=== PATIENT | male | born 1940 ===

== ENCOUNTER 2019-02-18 12:35 | Inpatient (IN) | payer OTHER, MEDICARE ==
[2019-02-18 12:47] VITALS: BMI 23.9
--- NOTE | 2019-02-18 13:53 | PDOC ---
History of Present Illness - General History Source: Patient, Other (Wound Care Clinic Referral Note) Exam Limitations: No Limitations - History of Present Illness Initial Comments: HPI: 78 y/o male presenting to [facility] ER from outpatient wound clinic complaining of four weeks of redness, warmth, and itching to right ankle. Over the past several days, the pt has noticed red boles that are moving up the internal portion of his leg. Endorses occasional chills without fevers as well as small amount of clear drainage. Denies arthralgia, numbness, or weakness. Symptoms started after gardening hydrangeas. Removed a tick from the area. Completed a two day course of Keflex and a ten day course of Bactrim one week ago without improvement in symptoms. Medical Hx: - Hypothyroidism - Osteoporosis - Hemochromatosis Surgical Hx: - R knee replacement 9 years ago Review of Systems: In addition to that documented in the HPI above, the additional ROS was obtained : Constitutional: Endorses chills. Denies fevers Head: Denies vision changes ENMT: Denies sore throat CV: Denies chest pain Resp: Denies SOB GI: Denies abd pain, vomiting, or diarrhea : Denies painful urination or hematuria MSK: Denies recent trauma Skin: Per HPI Neuro: Denies new numbness or tingling or weakness Endocrine: Denies polyuria Heme: Denies bleeding or bruising Physical Examination: Constitutional: Well-developed, well-nourished elderly adult male in no acute distress or obvious discomfort. Found semi-fowlers on hospital bed. Alert and oriented x4. Answered all questions appropriately and completely. Speech was non -labored, non-pressured. Head: Normocephalic. No obvious external signs of trauma. Cardiovascular / Chest: Regular rate and regular rhythm. No murmur, rubs, clicks , or gallops. Peripheral pulses: radial pulses full. Respiratory: Breathing unlabored. Equal chest rise and fall. Clear to auscultation bilaterally. No stridor, no wheezing, no rhonchi. Neuro: Alert and oriented. Moving all four extremities spontaneously. Skin: 6cm x 8cm circular darkly erythematous and warm lesion to right medial malleolus; no drainage, fluctuance, or induration. Petechiae diffusely spread on right roblero. Two technical solution architect erythematous patches to medial aspect of R knee and R upper thigh. Globally, skin is warm and dry. Psych: Affect: appropriate. Mood: normal. <Sandoval Kovacs - Last Filed: 02/18/19 14:48> <Misha Hagen - Last Filed: 02/18/19 16:22> - General Chief Complaint: Wound Stated Complaint: SENT BY DOCTOR Time Seen by Provider: 02/18/19 13:21 Past History - Past Medical History COPD: No Thyroid Disease: Yes - Immunization History Immunization Up to Date: No - Suicide/Smoking/Psychosocial Hx Smoking History: Never smoked Hx Alcohol Use: Yes Drug/Substance Use Hx: No <Sandoval Kovacs - Last Filed: 02/18/19 14:48> <Misha Hagen - Last Filed: 02/18/19 16:22> - Past Medical History Allergies/Adverse Reactions: Allergies Allergy/AdvReac Type Severity Reaction Status Date / Time No Known Allergies Allergy Verified 02/18/19 12:41 Home Medications: Ambulatory Orders Calcium + D3 ER Tablet 1 tab PO DAILY 02/04/19 Synthroid - 150 mcg PO DAILY 02/04/19 *Physical Exam - Vital Signs Last Vital Signs Temp Pulse Resp BP Pulse Ox 98 F 67 18 127/70 98 02/18/19 12:42 02/18/19 12:42 02/18/19 12:42 02/18/19 12:42 02/18/19 12:42 <Sandoval Kovacs - Last Filed: 02/18/19 14:48> - Vital Signs Last Vital Signs Temp Pulse Resp BP Pulse Ox 98 F 67 18 127/70 98 02/18/19 12:42 02/18/19 12:42 02/18/19 12:42 02/18/19 12:42 02/18/19 12:42 <Misha Hagen - Last Filed: 02/18/19 16:22> ED Treatment Course - LABORATORY CBC & Chemistry Diagram: 02/18/19 14:19 02/18/19 13:38 - RADIOLOGY Radiology Studies Ordered: Category Date Time Status CHEST X-RAY PORTABLE* [RAD] Stat Radiology 02/18/19 13:38 Ordered <Sandoval Kovacs - Last Filed: 02/18/19 14:48> - LABORATORY CBC & Chemistry Diagram: 02/18/19 14:19 02/18/19 13:38 - ADDITIONAL ORDERS Additional order review: Laboratory Results 02/18/19 02/18/19 13:38 13:38 Sodium 142 Potassium 4.1 Chloride 105 Carbon Dioxide 28 Anion Gap 8 BUN 30.2 H Creatinine 0.8 Est GFR (CKD-EPI)AfAm 99.87 Est GFR (CKD-EPI)NonAf 86.17 Random Glucose 114 H Calcium 8.7 Total Bilirubin 0.6 AST 24 ALT 22 Alkaline Phosphatase 59 C-Reactive Protein 1.5 H Total Protein 6.4 Albumin 3.1 L <Misha Hagen - Last Filed: 02/18/19 16:22> *DC/Admit/Observation/Transfer - Discharge Dispostion Decision to Admit order: Yes <Sandoval Kovacs - Last Filed: 02/18/19 14:48> - Discharge Dispostion Decision to Admit order: Yes <Misha Hagen - Last Filed: 02/18/19 16:22> Diagnosis at time of Disposition: Cellulitis of ankle - Discharge Dispostion Condition at time of disposition: Stable
[2019-02-18 14:42] LABS: BASO % 1.4 % (0-2.0); EOS % 3.4 % (0-4.5); HEMATOCRIT 39.7 % (35.4-49); HEMOGLOBIN 13.3 GM/dL (11.7-16.9); LYMPH % 34.8 % (8-40); MCH 31.6 pg (25.7-33.7); MCHC 33.6 g/dl (32.0-35.9); MEAN CELL VOLUME 94.2 fl (80-96); MEAN PLT VOLUME 7.7 fl (7.5-11.1); MONO % 10.8 % (3.8-10.2); NEUT % 49.6 % (42.8-82.8); PLATELET COUNT 188 K/MM3 (134-434); RBC 4.21 M/mm3 (4.00-5.60); RDW 14.5 % (11.9-15.9); WHITE BLOOD COUNT 5.6 K/mm3 (4.0-10.0)
--- NOTE | 2019-02-18 14:57 | PDOC ---
Documentation entered by Carrie Kang SCRIBE, acting as scribe for Misha Hagen MD. Misha Hagen MD: This documentation has been prepared by the Pearl aguirre Sammi, SCRIBE, under my direction and personally reviewed by me in its entirety. I confirm that the documentation accurately reflects all work, treatment, procedures, and medical decision making performed by me. Attending Attestation - Resident Resident Name: Sandoval Kovacs - HPI HPI: 02/18/19 14:57 The patient is a 78 year old male who presents with 4 weeks of right ankle swelling, erythema, and warmth, spreading up the right lower extremity, with associated wound drainage and chills. Denies fevers. Denies numbness or tingling. Patient failed outpatient treatment of Keflex and bactrim. - Physicial Exam PE: 02/18/19 14:53 Patient is awake and alert, nontoxic-appearing, in no distress Normocephalic and atraumatic PERRLA, EOMI CTA RRR Right lower extremity: + 8 cm x 10 cm area of well demarcated erythema overlying the medial malleolus, warm to touch, with normal range of motion at the ankle joint; + 4 x 6 area of erythema to the ER medial aspect of the knee joint, well-demarcated, warm to touch; normal range of motion at the knee joint is noted; + 3 cm x 4 cm area of well demarcated erythema to the medial aspect of the right thigh, warm to touch, nonblanching; no palpable inguinal lymphadenopathy; neurovascularly intact distally. - Medical Decision Making 02/18/19 14:55 Patient is well-appearing 78-year-old male who presents with signs and symptoms of acute cellulitis that has failed outpatient treatment with Keflex and Bactrim. Patient's symptoms may also suggest lymphangitic spread proximally. There is no evidence of necrotizing fasciitis at this time. We'll obtain blood cultures. We'll consult ID. We'll administer Zosyn and Doxycycline.
[2019-02-18 15:04] LABS: ALBUMIN 3.1 g/dl (3.4-5.0); BILIRUBIN,TOTAL 0.6 mg/dL (0.2-1); BLOOD UREA NITROGEN 30.2 mg/dL (7-18); CALCIUM 8.7 mg/dL (8.5-10.1); CREATININE 0.8 mg/dL (0.55-1.3); POTASSIUM 4.1 mmol/L (3.5-5.1); TOT PROT 6.4 g/dl (6.4-8.2)
[2019-02-18] MEDS ORDERED: PIPERACILLIN/TAZOB 3.375 GM 3.375 GM in DEXTROSE 5%-WATER - 50 ML IVPB ONE (15:36)
[2019-02-18] MEDS ORDERED: DOXYCYCLINE INJECTION 100 MG in DEXTROSE 5%-WATER - 100 ML IVPB ONE (15:36)
[2019-02-18] MEDS ORDERED: DOXYCYCLINE HYCLATE 100 MG VIAL ONE (16:16)
[2019-02-18] MEDS ORDERED: PIPERACILLIN/TAZOB 3.375 GM 3.375 GM/50 ML BAG IVPB ONE (16:16)
--- NOTE | 2019-02-18 17:43 | HP ---
Admitting History and Physical - Primary Care Physician PCP: Sara Francis - Admission History of Present Illness: 78 y/o male presenting to [facility] ER from outpatient wound clinic complaining of four weeks of redness, warmth, and itching to right ankle. Over the past several days, the pt has noticed red boles that are moving up the internal portion of his leg. Endorses occasional chills without fevers as well as small amount of clear drainage. Denies arthralgia, numbness, or weakness. Symptoms started after gardening hydrangeas. Removed a tick from the area. Completed a two day course of Keflex and a ten day course of Bactrim one week ago without improvement in symptoms. - Smoking History Smoking history: Never smoked - Alcohol/Substance Use Hx Alcohol Use: Yes Home Medications - Allergies Allergies/Adverse Reactions: Allergies Allergy/AdvReac Type Severity Reaction Status Date / Time No Known Allergies Allergy Verified 02/18/19 12:41 - Home Medications Home Medications: Ambulatory Orders Levothyroxine Sodium [Synthroid] 0 mcg PO DAILY 02/18/19 Physical Examination Vital Signs: Vital Signs Temperature 97 F L 02/18/19 17:09 Pulse Rate 56 L 02/18/19 17:09 Respiratory Rate 18 02/18/19 12:42 Blood Pressure 118/67 02/18/19 17:09 O2 Sat by Pulse Oximetry (%) 97 02/18/19 17:09 Constitutional: Yes: No Distress HENT: Yes: Atraumatic Neck: Yes: Supple Cardiovascular: Yes: Regular Rate and Rhythm Respiratory: Yes: CTA Bilaterally Gastrointestinal: Yes: Normal Bowel Sounds Extremities: Yes: Other (R ankle cellulitis) Neurological: Yes: Alert, Oriented Labs: CBC, BMP 02/18/19 14:19 02/18/19 13:38 Problem List - Problems (1) Cellulitis of ankle Assessment/Plan: on iv abx id consult Code(s): L03.119 - CELLULITIS OF UNSPECIFIED PART OF LIMB (2) Hypothyroid Assessment/Plan: on meds Code(s): E03.9 - HYPOTHYROIDISM, UNSPECIFIED Assessment/Plan Laboratory Tests 02/18/19 02/18/19 02/18/19 13:38 13:38 14:19 WBC 5.6 RBC 4.21 Hgb 13.3 Hct 39.7 MCV 94.2 MCH 31.6 MCHC 33.6 RDW 14.5 Plt Count 188 MPV 7.7 Absolute Neuts (auto) 2.8 Neutrophils % 49.6 Lymphocytes % 34.8 Monocytes % 10.8 H Eosinophils % 3.4 Basophils % 1.4 Nucleated RBC % 0 ESR Sodium 142 Potassium 4.1 Chloride 105 Carbon Dioxide 28 Anion Gap 8 BUN 30.2 H Creatinine 0.8 Est GFR (CKD-EPI)AfAm 99.87 Est GFR (CKD-EPI)NonAf 86.17 Random Glucose 114 H Calcium 8.7 Total Bilirubin 0.6 AST 24 ALT 22 Alkaline Phosphatase 59 C-Reactive Protein 1.5 H Total Protein 6.4 Albumin 3.1 L 02/18/19 14:19 WBC RBC Hgb Hct MCV MCH MCHC RDW Plt Count MPV Absolute Neuts (auto) Neutrophils % Lymphocytes % Monocytes % Eosinophils % Basophils % Nucleated RBC % ESR 21 H Sodium Potassium Chloride Carbon Dioxide Anion Gap BUN Creatinine Est GFR (CKD-EPI)AfAm Est GFR (CKD-EPI)NonAf Random Glucose Calcium Total Bilirubin AST ALT Alkaline Phosphatase C-Reactive Protein Total Protein Albumin Active Medications Generic Name Dose Route Start Last Admin Trade Name Freq PRN Reason Stop Dose Admin Acetaminophen 650 mg 02/18/19 17:44 Tylenol - PO Q6H PRN FEVER Doxycycline Hyclate 100 mg 02/19/19 18:00 02/19/19 17:15 Vibramycin - PO 100 mg BID@1000,1800 [facility] Administration Heparin Sodium (Porcine) 5,000 unit 02/18/19 22:00 02/19/19 10:16 Heparin - SQ Not Given BID [facility] Piperacillin Sod/Tazobactam 50 mls @ 100 mls/hr 02/19/19 11:45 02/19/19 17:20 Sod 3.375 gm/ Dextrose IVPB 100 mls/hr Q8H-IV [facility] Administration Protocol Levothyroxine Sodium 88 mcg 02/19/19 07:00 02/19/19 07:05 Synthroid - PO Not Given AM [facility]
[2019-02-18] MEDS ORDERED: ACETAMINOPHEN 325 MG TABLET (FP) PO PRN (17:44)
[2019-02-18] MEDS: HEPARIN NA (PORCINE) 5,000 UNITS/ML 1ML VIAL SQ SCH (21:43)
[2019-02-19] MEDS: LEVOTHYROXINE NA 88 MCG TABLET (FP) PO SCH ×2 (06:26→07:05)
[2019-02-19 08:05] LABS: BASO % 0.9 % (0-2.0); EOS % 2.3 % (0-4.5); HEMOGLOBIN 12.7 GM/dL (11.7-16.9); LYMPH % 34.5 % (8-40); MCH 31.5 pg (25.7-33.7); MCHC 33.5 g/dl (32.0-35.9); MEAN CELL VOLUME 94.1 fl (80-96); MEAN PLT VOLUME 7.9 fl (7.5-11.1); MONO % 10.1 % (3.8-10.2); NEUT % 52.2 % (42.8-82.8); PLATELET COUNT 176 K/MM3 (134-434); RBC 4.04 M/mm3 (4.00-5.60); RDW 14.5 % (11.9-15.9); WHITE BLOOD COUNT 6.2 K/mm3 (4.0-10.0)
[2019-02-19 08:33] LABS: ALBUMIN 2.9 g/dl (3.4-5.0); BILIRUBIN,TOTAL 0.8 mg/dL (0.2-1); BLOOD UREA NITROGEN 25.4 mg/dL (7-18); CALCIUM 8.3 mg/dL (8.5-10.1); CREATININE 0.8 mg/dL (0.55-1.3); POTASSIUM 4.4 mmol/L (3.5-5.1)
[2019-02-19] MEDS: HEPARIN NA (PORCINE) 5,000 UNITS/ML 1ML VIAL SQ SCH ×2 (10:16→21:32)
--- NOTE | 2019-02-19 11:11 | EKG ---
Test Reason : Blood Pressure : / mmHG Vent. Rate : 065 BPM Atrial Rate : 065 BPM P-R Int : 200 ms QRS Dur : 080 ms QT Int : 422 ms P-R-T Axes : 072 024 046 degrees QTc Int : 438 ms POOR DATA QUALITY, INTERPRETATION MAY BE ADVERSELY AFFECTED NORMAL SINUS RHYTHM NO PREVIOUS ECGS AVAILABLE Confirmed by GISEL AMAYA MD ([id number]) on 02/19/2019 11:11:13 AM Referred By: Confirmed By:GISEL AMAYA MD
[2019-02-19] MEDS ORDERED: PIPERACILLIN/TAZOBACTAM 3.375 GM VIAL IVPB ONE ×2 (11:57→16:43)
[2019-02-19] MEDS ORDERED: DEXTROSE 5%-WATER - 50 ML IVPB ONE ×2 (11:57→16:43)
[2019-02-19] MEDS: PIPERACILLIN/TAZOB 3.375 GM 3.375 GM in DEXTROSE 5%-WATER - 50 ML IVPB SCH ×2 (12:09→17:20)
--- NOTE | 2019-02-19 14:46 | CON.ID ---
Consult Consult Specialty:: infectious diseases Referred by:: Reason for Consultation:: cellulitis of the rt leg - History of Present Illness Chief Complaint: swelling and redness of the rt leg History of Present Illness: 8 y/o male padmitted because of four weeks of redness, warmth, and itching to right ankle. Over the past several days, the pt has noticed red boles that are moving up the internal portion of his leg. Endorses occasional chills without fevers as well as small amount of clear drainage. Denies arthralgia, numbness, or weakness. Symptoms started after gardening Removed a tick from the area. Completed a two day course of Keflex and a ten day course of Bactrim one week ago without improvement in symptoms. patient mentions that redness has gone up his leg and now has reached the groin currently patient is comfortable - History Source History Provided By: Patient Limitations to Obtaining History: No Limitations - Alcohol/Substance Use Hx Alcohol Use: Yes - Smoking History Smoking history: Never smoked Home Medications - Allergies Allergies/Adverse Reactions: Allergies Allergy/AdvReac Type Severity Reaction Status Date / Time No Known Allergies Allergy Verified 02/18/19 12:41 - Home Medications Home Medications: Ambulatory Orders Levothyroxine Sodium [Synthroid] 0 mcg PO DAILY 02/18/19 Review of Systems - Review of Systems Constitutional: reports: No Symptoms Eyes: reports: No Symptoms HENT: reports: No Symptoms Neck: reports: No Symptoms, Swollen Glands Respiratory: reports: No Symptoms Gastrointestinal: reports: No Symptoms Genitourinary: reports: No Symptoms Musculoskeletal: reports: No Symptoms Integumentary: reports: Change in Color, Erythema, Other Neurological: reports: No Symptoms Endocrine: reports: No Symptoms Hematology/Lymphatic: reports: No Symptoms Psychiatric: reports: No Symptoms Physical Exam Vital Signs: Vital Signs Temperature 98.2 F 02/19/19 06:00 Pulse Rate 67 02/19/19 06:00 Respiratory Rate 20 02/19/19 09:00 Blood Pressure 117/68 02/19/19 06:00 O2 Sat by Pulse Oximetry (%) 97 02/19/19 09:00 Constitutional: Yes: Well Nourished, No Distress, Calm Eyes: Yes: Conjunctiva Clear Neck: Yes: Supple, Trachea Midline Cardiovascular: Yes: Regular Rate and Rhythm Respiratory: Yes: Regular, CTA Bilaterally Gastrointestinal: Yes: Normal Bowel Sounds, Soft Musculoskeletal: Yes: WNL Extremities: Yes: Erythema, Other Integumentary: Yes: Erythema, Other (lymphangitis) Neurological: Yes: Alert, Oriented Psychiatric: Yes: Alert, Oriented Labs: CBC, BMP 02/19/19 06:56 02/19/19 06:56 Assessment/Plan patient coming to the hospital with swelling and cellulitis of the ankle with erythema extending tot he groin patient also mentions that he hd a bite from a tick also looks like then it became infected and looks like the spread ahs occured to the groin plan continue zosyn will also add doxy monitor streaking rest as per the team
--- NOTE | 2019-02-19 14:56 | PN ---
Progress Note, Physician - Current Medication List Current Medications: Active Medications Acetaminophen (Tylenol -) 650 mg PO Q6H PRN PRN Reason: FEVER Doxycycline Hyclate (Vibramycin -) 100 mg PO BID@1000,1800 [facility] Heparin Sodium (Porcine) (Heparin -) 5,000 unit SQ BID [facility] Last Admin: 02/19/19 10:16 Dose: Not Given Piperacillin Sod/Tazobactam (Sod 3.375 gm/ Dextrose) 50 mls @ 100 mls/hr IVPB Q8H-IV [facility]; Protocol Last Admin: 02/19/19 12:09 Dose: 100 mls/hr Levothyroxine Sodium (Synthroid -) 88 mcg PO AM [facility] Last Admin: 02/19/19 07:05 Dose: Not Given - Objective Vital Signs: Vital Signs Temperature 98.2 F 02/19/19 06:00 Pulse Rate 67 02/19/19 06:00 Respiratory Rate 20 02/19/19 09:00 Blood Pressure 117/68 02/19/19 06:00 O2 Sat by Pulse Oximetry (%) 97 02/19/19 09:00 Constitutional: Yes: No Distress HENT: Yes: Atraumatic Neck: Yes: Supple Cardiovascular: Yes: Regular Rate and Rhythm Respiratory: Yes: CTA Bilaterally Gastrointestinal: Yes: Normal Bowel Sounds Extremities: Yes: Other (R ankle cellulitis) Neurological: Yes: Alert, Oriented Labs: CBC, BMP 02/19/19 06:56 02/19/19 06:56 Problem List - Problems (1) Cellulitis of ankle Assessment/Plan: on av /po abx id consult Code(s): L03.119 - CELLULITIS OF UNSPECIFIED PART OF LIMB
[2019-02-19] MEDS: DOXYCYCLINE HYCLATE 100 MG CAPSULE PO SCH (17:15)
[2019-02-20] MEDS ORDERED: DEXTROSE 5%-WATER - 50 ML IVPB ONE ×3 (02:40→17:09)
[2019-02-20] MEDS ORDERED: PIPERACILLIN/TAZOBACTAM 3.375 GM VIAL IVPB ONE ×3 (02:40→17:09)
[2019-02-20] MEDS: PIPERACILLIN/TAZOB 3.375 GM 3.375 GM in DEXTROSE 5%-WATER - 50 ML IVPB SCH ×3 (02:58→17:24)
[2019-02-20] MEDS: LEVOTHYROXINE NA 88 MCG TABLET (FP) PO SCH (06:06)
[2019-02-20] MEDS: DOXYCYCLINE HYCLATE 100 MG CAPSULE PO SCH ×2 (09:43→17:24)
--- NOTE | 2019-02-20 09:43 | PN ---
Progress Note, Physician History of Present Illness: patient stable leg improving - Current Medication List Current Medications: Active Medications Acetaminophen (Tylenol -) 650 mg PO Q6H PRN PRN Reason: FEVER Doxycycline Hyclate (Vibramycin -) 100 mg PO BID@1000,1800 [facility] Last Admin: 02/19/19 17:15 Dose: 100 mg Heparin Sodium (Porcine) (Heparin -) 5,000 unit SQ BID [facility] Last Admin: 02/19/19 21:32 Dose: Not Given Piperacillin Sod/Tazobactam (Sod 3.375 gm/ Dextrose) 50 mls @ 100 mls/hr IVPB Q8H-IV [facility]; Protocol Last Admin: 02/20/19 02:58 Dose: 100 mls/hr Levothyroxine Sodium (Synthroid -) 88 mcg PO AM [facility] Last Admin: 02/20/19 06:06 Dose: 88 mcg - Objective Vital Signs: Vital Signs Temperature 97.8 F 02/20/19 05:00 Pulse Rate 83 02/20/19 05:00 Respiratory Rate 20 02/19/19 21:00 Blood Pressure 116/63 02/20/19 05:00 O2 Sat by Pulse Oximetry (%) 97 02/19/19 21:00 Constitutional: Yes: No Distress, Calm Cardiovascular: Yes: S1, S2 Respiratory: Yes: Regular, CTA Bilaterally Gastrointestinal: Yes: Normal Bowel Sounds, Soft Musculoskeletal: Yes: Other Extremities: Yes: Erythema (improving) Integumentary: Yes: Erythema (improving) Neurological: Yes: Alert, Oriented Psychiatric: Yes: Alert, Oriented Labs: CBC, BMP 02/19/19 06:56 02/19/19 06:56 Assessment/Plan patient coming to the hospital with swelling and cellulitis of the ankle with erythema extending tot he groin patient also mentions that he hd a bite from a tick cellulitis of the leg erythema of the leg varicose veins swelling of the leg plan continue abx monitor redness
[2019-02-20] MEDS: HEPARIN NA (PORCINE) 5,000 UNITS/ML 1ML VIAL SQ SCH ×2 (09:44→21:33)
--- NOTE | 2019-02-20 14:04 | PN ---
Progress Note, Physician - Current Medication List Current Medications: Active Medications Acetaminophen (Tylenol -) 650 mg PO Q6H PRN PRN Reason: FEVER Doxycycline Hyclate (Vibramycin -) 100 mg PO BID@1000,1800 [facility] Last Admin: 02/20/19 09:43 Dose: 100 mg Heparin Sodium (Porcine) (Heparin -) 5,000 unit SQ BID [facility] Last Admin: 02/20/19 09:44 Dose: Not Given Piperacillin Sod/Tazobactam (Sod 3.375 gm/ Dextrose) 50 mls @ 100 mls/hr IVPB Q8H-IV [facility]; Protocol Last Admin: 02/20/19 09:43 Dose: 100 mls/hr Levothyroxine Sodium (Synthroid -) 88 mcg PO AM [facility] Last Admin: 02/20/19 06:06 Dose: 88 mcg - Objective Vital Signs: Vital Signs Temperature 97.8 F 02/20/19 05:00 Pulse Rate 83 02/20/19 05:00 Respiratory Rate 20 02/20/19 09:00 Blood Pressure 116/63 02/20/19 05:00 O2 Sat by Pulse Oximetry (%) 97 02/20/19 09:00 Constitutional: Yes: No Distress HENT: Yes: Atraumatic Neck: Yes: Supple Cardiovascular: Yes: Regular Rate and Rhythm Respiratory: Yes: CTA Bilaterally Gastrointestinal: Yes: Normal Bowel Sounds Extremities: Yes: Other (R ankle cellulitis much improved) Edema: Yes Edema: RLE: 1+ Neurological: Yes: Alert, Oriented Labs: CBC, BMP 02/19/19 06:56 02/19/19 06:56 Problem List - Problems (1) Cellulitis of ankle Assessment/Plan: on abx per id Code(s): L03.119 - CELLULITIS OF UNSPECIFIED PART OF LIMB (2) Hypothyroid Assessment/Plan: on meds Code(s): E03.9 - HYPOTHYROIDISM, UNSPECIFIED
[2019-02-21] MEDS ORDERED: DEXTROSE 5%-WATER - 50 ML IVPB ONE ×3 (00:59→16:41)
[2019-02-21] MEDS ORDERED: PIPERACILLIN/TAZOBACTAM 3.375 GM VIAL IVPB ONE ×3 (00:59→16:41)
[2019-02-21] MEDS: PIPERACILLIN/TAZOB 3.375 GM 3.375 GM in DEXTROSE 5%-WATER - 50 ML IVPB SCH ×3 (01:25→17:14)
[2019-02-21] MEDS: LEVOTHYROXINE NA 88 MCG TABLET (FP) PO SCH (06:44)
[2019-02-21] MEDS: DOXYCYCLINE HYCLATE 100 MG CAPSULE PO SCH ×2 (09:12→17:14)
[2019-02-21] MEDS: HEPARIN NA (PORCINE) 5,000 UNITS/ML 1ML VIAL SQ SCH ×2 (10:35→21:52)
--- NOTE | 2019-02-21 14:58 | PN ---
Progress Note, Physician History of Present Illness: Pt seen and examined, chart reviewed. He states his foot/ankle, Rt medial knee, Rt groin regions are feeling better with less erythema/warmth. Remains afebrile.No other complaints. - Current Medication List Current Medications: Active Medications Acetaminophen (Tylenol -) 650 mg PO Q6H PRN PRN Reason: FEVER Doxycycline Hyclate (Vibramycin -) 100 mg PO BID@1000,1800 [facility] Last Admin: 02/21/19 09:12 Dose: 100 mg Heparin Sodium (Porcine) (Heparin -) 5,000 unit SQ BID [facility] Last Admin: 02/20/19 21:33 Dose: Not Given Piperacillin Sod/Tazobactam (Sod 3.375 gm/ Dextrose) 50 mls @ 100 mls/hr IVPB Q8H-IV [facility]; Protocol Last Admin: 02/21/19 09:12 Dose: 100 mls/hr Levothyroxine Sodium (Synthroid -) 88 mcg PO AM [facility] Last Admin: 02/21/19 06:44 Dose: Not Given - Objective Vital Signs: Vital Signs Temperature 97.7 F 02/21/19 06:00 Pulse Rate 53 L 02/21/19 06:00 Respiratory Rate 18 02/21/19 09:00 Blood Pressure 122/69 02/21/19 06:00 O2 Sat by Pulse Oximetry (%) 98 02/21/19 09:00 Constitutional: Yes: No Distress, Calm Cardiovascular: Yes: Regular Rate and Rhythm Respiratory: Yes: Regular Gastrointestinal: Yes: Normal Bowel Sounds, Soft Genitourinary: Yes: WNL Extremities: Yes: Erythema (Rt foot/ankle with decreased erythema, still with swelling, good ROM Rt medial knee erythema/groin resolving) Neurological: Yes: Alert, Oriented Labs: CBC, BMP 02/19/19 06:56 02/19/19 06:56 Laboratory Tests 02/18/19 02/18/19 02/18/19 13:38 13:38 14:19 WBC 5.6 RBC 4.21 Hgb 13.3 Hct 39.7 MCV 94.2 MCH 31.6 MCHC 33.6 RDW 14.5 Plt Count 188 MPV 7.7 Absolute Neuts (auto) 2.8 Neutrophils % 49.6 Lymphocytes % 34.8 Monocytes % 10.8 H Eosinophils % 3.4 Basophils % 1.4 Nucleated RBC % 0 ESR Sodium 142 Potassium 4.1 Chloride 105 Carbon Dioxide 28 Anion Gap 8 BUN 30.2 H Creatinine 0.8 Est GFR (CKD-EPI)AfAm 99.87 Est GFR (CKD-EPI)NonAf 86.17 Random Glucose 114 H Calcium 8.7 Total Bilirubin 0.6 AST 24 ALT 22 Alkaline Phosphatase 59 C-Reactive Protein 1.5 H Total Protein 6.4 Albumin 3.1 L 02/18/19 02/19/19 02/19/19 14:19 06:56 06:56 WBC 6.2 RBC 4.04 Hgb 12.7 Hct 38.0 MCV 94.1 MCH 31.5 MCHC 33.5 RDW 14.5 Plt Count 176 MPV 7.9 Absolute Neuts (auto) 3.2 Neutrophils % 52.2 Lymphocytes % 34.5 Monocytes % 10.1 Eosinophils % 2.3 Basophils % 0.9 Nucleated RBC % 0 ESR 21 H Sodium 142 Potassium 4.4 Chloride 108 H Carbon Dioxide 27 Anion Gap 6 L BUN 25.4 H Creatinine 0.8 Est GFR (CKD-EPI)AfAm 99.87 Est GFR (CKD-EPI)NonAf 86.17 Random Glucose 77 Calcium 8.3 L Total Bilirubin 0.8 AST 23 ALT 21 Alkaline Phosphatase 60 C-Reactive Protein Total Protein 6.0 L Albumin 2.9 L Problem List - Problems (1) Cellulitis of ankle Code(s): L03.119 - CELLULITIS OF UNSPECIFIED PART OF LIMB (2) Hypothyroid Code(s): E03.9 - HYPOTHYROIDISM, UNSPECIFIED Assessment/Plan RLE cellulitis s/p tick bite Hypothyroidism -- clinically improving on Zosyn, Doxycycline - will continue for now -- still with swelling in ankle region although erythema improving
--- NOTE | 2019-02-21 19:12 | PN ---
Progress Note, Physician - Current Medication List Current Medications: Active Medications Acetaminophen (Tylenol -) 650 mg PO Q6H PRN PRN Reason: FEVER Doxycycline Hyclate (Vibramycin -) 100 mg PO BID@1000,1800 [facility] Last Admin: 02/21/19 17:14 Dose: 100 mg Heparin Sodium (Porcine) (Heparin -) 5,000 unit SQ BID [facility] Last Admin: 02/21/19 10:35 Dose: Not Given Piperacillin Sod/Tazobactam (Sod 3.375 gm/ Dextrose) 50 mls @ 100 mls/hr IVPB Q8H-IV [facility]; Protocol Last Admin: 02/21/19 17:14 Dose: 100 mls/hr Levothyroxine Sodium (Synthroid -) 88 mcg PO AM [facility] Last Admin: 02/21/19 06:44 Dose: Not Given - Objective Vital Signs: Vital Signs Temperature 97.8 F 02/21/19 15:24 Pulse Rate 53 L 02/21/19 15:24 Respiratory Rate 20 02/21/19 15:24 Blood Pressure 122/69 02/21/19 15:24 O2 Sat by Pulse Oximetry (%) 98 02/21/19 09:00 Constitutional: Yes: No Distress HENT: Yes: Atraumatic Neck: Yes: Supple Cardiovascular: Yes: Regular Rate and Rhythm Respiratory: Yes: CTA Bilaterally Gastrointestinal: Yes: Normal Bowel Sounds Extremities: Yes: Other (R ankle cellulitis) Neurological: Yes: Alert, Oriented Labs: CBC, BMP 02/19/19 06:56 02/19/19 06:56 Problem List - Problems (1) Cellulitis of ankle Assessment/Plan: on abx per id Code(s): L03.119 - CELLULITIS OF UNSPECIFIED PART OF LIMB (2) Hypothyroid Assessment/Plan: on meds Code(s): E03.9 - HYPOTHYROIDISM, UNSPECIFIED
[2019-02-21 21:09] LABS: BASO % 1.1 % (0-2.0); EOS % 3.4 % (0-4.5); HEMATOCRIT 40.5 % (35.4-49); HEMOGLOBIN 13.5 GM/dL (11.7-16.9); LYMPH % 49.5 % (8-40); MCH 31.8 pg (25.7-33.7); MCHC 33.4 g/dl (32.0-35.9); MEAN CELL VOLUME 95.1 fl (80-96); MONO % 9.4 % (3.8-10.2); NEUT % 36.6 % (42.8-82.8); PLATELET COUNT 194 K/MM3 (134-434); RBC 4.26 M/mm3 (4.00-5.60); RDW 14.5 % (11.9-15.9); WHITE BLOOD COUNT 6.9 K/mm3 (4.0-10.0)
[2019-02-21 21:18] LABS: BILIRUBIN,TOTAL 0.4 mg/dL (0.2-1); BLOOD UREA NITROGEN 30.2 mg/dL (7-18); CALCIUM 8.8 mg/dL (8.5-10.1); CREATININE 1.3 mg/dL (0.55-1.3); POTASSIUM 4.3 mmol/L (3.5-5.1); TOT PROT 6.5 g/dl (6.4-8.2)
[2019-02-22] MEDS ORDERED: PIPERACILLIN/TAZOBACTAM 3.375 GM VIAL IVPB ONE ×2 (02:32→09:03)
[2019-02-22] MEDS ORDERED: DEXTROSE 5%-WATER - 50 ML IVPB ONE ×2 (02:33→09:03)
[2019-02-22] MEDS: PIPERACILLIN/TAZOB 3.375 GM 3.375 GM in DEXTROSE 5%-WATER - 50 ML IVPB SCH ×2 (02:57→09:58)
[2019-02-22 06:18] VITALS: BP 118/69; PULSE 50; TEMP 98.4
[2019-02-22] MEDS: LEVOTHYROXINE NA 88 MCG TABLET (FP) PO SCH (06:29)
[2019-02-22] MEDS: DOXYCYCLINE HYCLATE 100 MG CAPSULE PO SCH (09:58)
--- NOTE | 2019-02-22 19:45 | DS ---
Physical Examination Vital Signs: Vital Signs Temperature 98.4 F 02/22/19 06:00 Pulse Rate 50 L 02/22/19 06:00 Respiratory Rate 20 02/22/19 09:00 Blood Pressure 118/69 02/22/19 06:00 O2 Sat by Pulse Oximetry (%) 98 02/22/19 09:00 Labs: CBC, BMP 02/21/19 20:15 02/21/19 20:15 Discharge Summary Reason For Visit: CELLULITIS OF ANKLE Condition: Stable - Instructions Disposition: HOME - Home Medications Comprehensive Discharge Medication List: Ambulatory Orders Levothyroxine Sodium [Synthroid] 0 mcg PO DAILY 02/18/19 Amoxicillin/Potassium Clav [Augmentin 875-125 Tablet] 1 each PO BID #20 tablet 02/21/19 Doxycycline Hyclate [Vibramycin -] 100 mg PO BID@1000,1800 #20 capsule 02/21/19 [facility]
== END 2019-02-22 12:58 | disposition home or self-care (01) | DRG 603 ==
LOC: JER 12:35 → JERBED 13:53 → J6S 18:55
PROVIDERS: ADMIT Internal Medicine; ATTEND Internal Medicine
DX: L03.115 Cellulitis of right lower limb (principal); E03.9 Hypothyroidism, unspecified; M81.0 Age-related osteoporosis without current pathological fracture; E83.119 Hemochromatosis, unspecified; I83.891 Varicose veins of right lower extremity with other complications; S80.861A Insect bite (nonvenomous), right lower leg, initial encounter
CPT/HCPCS: 36415; 71045-TC-FY; 80053; 85025; 85651; 86140; 87040; 93005; 93010; 99283-25; G0463-25; J1644